=== PATIENT | male | born 1995 | race Two or more races ===

== ENCOUNTER 2024-07-27 21:23 | Emergency (ER) | payer MEDICAID, OTHER ==
[~2024-07-27] VITALS: Ht 157.5 cm; Wt 90.8 kg
[2024-07-27 21:30] VITALS: BP 181/120; PULSE 108; RESP 16; O2SAT 98
[2024-07-27] MEDS: hydrALAZINE HCL 10 MG TAB PO ONE (22:06)
== END 2024-07-27 23:05 | disposition left against medical advice (07) ==
LOC: ER 21:23
DX: R22.0 Localized swelling, mass and lump, head (principal); M79.602 Pain in left arm; M79.601 Pain in right arm; L29.9 Pruritus, unspecified; Z53.21 Procedure and treatment not carried out due to patient leaving prior to being seen by health care provider